=== PATIENT | male | born 1965 | race Caucasian/White ===

== ENCOUNTER → 2021-12-17 | Outpatient (CLI) | payer BC ==
--- NOTE | 2021-12-17 11:48 | MR ---
Left and right hand MRI HISTORY: Hand pain bilaterally Multiplanar multisequence imaging obtained through the hands No plain film submitted for correlation. Left hand MRI: T2 bright focus is present in the volar aspect of the wrist just proximal to the secon d metacarpal at the level of the trapezium and trapezoid measuring approximately 11 mm x 4 mm x 4 mm is a suitable ganglion. Median nerve measurement is within normal limits. There is scattered patchy a reas of T2 bright signal within the carpal bones. Spurring is present at the interphalangeal joints. Focus of questionable bone erosion along the radial aspect of the distal second metacarpal is noted, difficult to exclude bone erosion. Flexor and extensor tendons are intact. No evident erosion at the level of the ulnar styloid. Right hand MRI: Median nerve measurement is borderline increased at 13 sq mm. There is suggestion of bone erosion distal second through fourth metacarpals although there is no associated edema, no incre ased signal change on T2-weighted images. Interphalangeal joints show some spurring consistent osteoa rthritis. Focal area of fluid signal is present at the volar aspect of the distal portion of the prox imal phalanx of the fourth digit deep to the tendon. Flexor and extensor tendons are intact. Scattere d possible geodes, T2 bright foci of signal present within the carpal bones. No evident ulnar styloid erosion. Some fluid signal is present similarly to opposite hand along the level of the volar aspect of the wrist near the proximal aspect of the second metacarpal IMPRESSION: There are features of osteoarthritis. Difficult to exclude early rheumatoid arthritis claire nge, correlate with inflammatory markers.
== END | disposition home or self-care (01) ==
LOC: RADMRIMAIN 08:13
PROVIDERS: ATTEND Internal Medicine
DX: M19.042 Primary osteoarthritis, left hand (principal); M19.041 Primary osteoarthritis, right hand

== ENCOUNTER → 2023-06-30 | Outpatient (CLI) | payer OTHER ==
--- NOTE | 2023-07-01 09:41 | NM ---
EXAMINATION TYPE: NM thyroid image w uptake DATE OF EXAM: 07/01/2023 COMPARISON: NONE CLINICAL INDICATION: Male, 58 years old with history of R79.89; TECHNIQUE: Thyroid iodine uptake is calculated and images performed after the oral administration of 314 uCi 1-123 Capsule. FINDINGS: There is normal distribution of activity throughout the gland. The 4 hour iodine uptake is calculated at 7.3% (normal range 8-14%). The 24-hour iodine uptake is calculated at 20.9% (normal ra nge 15-35%). IMPRESSION: Thyroid uptake at 4 hours slightly below normal range, Normal thyroid scan and uptake at 24 hours. Findings favor euthyroid. Given the 4 low value etiologies for low uptake could be consider ed but felt to be less likely such as Markell's and subacute thyroiditis.
== END | disposition home or self-care (01) ==
LOC: RADNMMAIN 08:58
PROVIDERS: ATTEND Internal Medicine
DX: R79.89 Other specified abnormal findings of blood chemistry (principal)
CPT/HCPCS: 78014; A9516

== ENCOUNTER → 2023-07-21 | Outpatient (CLI) | payer OTHER ==
[~2023-07-21] MED LIST: REGADENOSON 0.4 MG/5 ML SYRINGE IV PRN
--- NOTE | 2023-07-21 18:28 | CA ---
Exercise Nuclear Stress Test Report Name: Jared Cates Exam Date: 07/21/2023 09:37 Exam Location: [place] Stress Ht (in): 67 Wt (lb): 195 BSA: 2.00 Ordering Phys: Nikolai Coley MD Referring Phys: Vianca, Technologist: KELVIN,, Age: 58 Gender: M : 1965 Procedure CPT: Indications: I25.10 ICD-10 Codes: Patient History: hypercholesterolemia and family history of heart disease Medications: Meds past 24 hrs: Pretest Chest Pain: STRESS TEST Eliazar Protocol Exercise Duration (min:sec): 11:[address] Depressions (mm): Angina Score: Choi Score: Resting HR (bpm): 60 Peak HR (bpm): 164 Resting BP (mmHg): 136 / 87 Peak BP (mmHg): 227 / 80 MPHR: 160 Target HR: 136 % MPHR: 103 METS: 12.1 Total Dose: Peak Dose: Atropine: Double Product: 27228 BP Response: Stress Termination: Reached target heart rate Stress Symptoms: No chest pain or symptoms Stress Summary: ECG ANALYSIS Resting ECG: Normal sinus rhythm, normal ECG with heart rate 59 bpm Stress ECG: No significant ST-T wave changes diagnostic for ischemia by ST segment analysis. There were frequent monomorphic premature ventricular contractions. No sustained arrhythmias CONCLUSIONS Excellent exercise tolerance for age achieving 12.1 METS Normal clinical and hemodynamic response to exercise Nonischemic ECG response to exercise Nuclear perfusion imaging is reported separately by the radiology team. Please refer to that report for complete interpretation of this study. Dr Jorge Servin (Electronically Signed) Final Date: 21 July 2023 18:27
--- NOTE | 2023-07-23 07:37 | NM ---
EXAMINATION TYPE: NM stress lexiscan cardiolite DATE OF EXAM: 07/21/2023 COMPARISON: NONE HISTORY: Atherosclerosis of [place] coronary vessels TECHNIQUE: After the intravenous administration of 9.7 mCi Tc 99m Sestamibi - Cardiolite resting SPE CT images acquired 45 minutes post injection. At peak stress 26 mCi Tc 99m Sestamibi - Stress images obtained 15 minutes post injection The patient was stressed on the treadmill. FINDINGS: No fixed defects are evident No reversible stress defects on Spect images Wall motion is normal. Ejection fraction is calculated to be 65 %. IMPRESSION: 1. No stress-induced ischemic changes.
== END | disposition home or self-care (01) ==
LOC: RADNMMAIN 07:42
PROVIDERS: ATTEND Internal Medicine
DX: I25.10 Atherosclerotic heart disease of native coronary artery without angina pectoris (principal); E78.00 Pure hypercholesterolemia, unspecified; Z82.49 Family history of ischemic heart disease and other diseases of the circulatory system
CPT/HCPCS: 93017; 78452; A9500; J2785